=== PATIENT | male | born 1965 ===

== ENCOUNTER 2017-11-23 10:57 | Emergency (ER) | payer OTHER ==
[2017-11-23 11:09] VITALS: BMI 26.1
[2017-11-23 11:12] VITALS: BP 126/79; PULSE 80; RESP 20; TEMP 98.1; O2SAT 100
--- NOTE | 2017-11-23 11:45 | ED PDOC ---
HPI: General Adult Time Seen by Provider: 11/23/17 11:20 Chief Complaint (Nursing): Abnormal Skin Integrity History Per: Patient Additional Complaint(s): Pt. states for the for the past 2 weeks he's had a pruritic rash throughout his body. Denies fever, hx of previous allergic reactions, pain. Past Medical History Reviewed: Historical Data, Nursing Documentation, Vital Signs Vital Signs: Last Vital Signs Temp 98.1 F 11/23/17 11:09 Pulse 80 11/23/17 11:09 Resp 20 11/23/17 11:09 BP 126/79 11/23/17 11:09 Pulse Ox 100 11/23/17 11:09 - Family History Family History: States: No Known Family Hx - Home Medications Home Medications: Ambulatory Orders Medication Instructions Recorded Nystatin/Triamcinolone [Mycolog 1 appl TP TID #1 tube 11/23/17 Cream] - Allergies Allergies/Adverse Reactions: Allergies Allergy/AdvReac Type Severity Reaction Status Date / Time No Known Allergies Allergy Verified 11/23/17 11:42 Review of Systems ROS Statement: Except As Marked, All Systems Reviewed And Found Negative Skin: Positive for: Rash Physical Exam - Physical Exam Appears: Positive for: Well, Non-toxic, No Acute Distress Skin: Positive for: Normal Color, Warm, Rash (Multiple erythematous plaques with central clearing on L forearm, L side of abdomen, b/l thighs; no vesicles, pustules, or traget shaped lesions) - ECG O2 Sat by Pulse Oximetry: 100 Disposition - Clinical Impression Clinical Impression: Tinea corporis - Patient ED Disposition Is Patient to be Admitted: No - Disposition Referrals: Neville Nicolas MD [Family Provider] - Disposition: Routine/Home Disposition Time: 11:30 Condition: STABLE Additional Instructions: Follow up with Dr. Nicolas, PMD, for further evaluation. Return to ED immediately if symptoms persist or worsen. Prescriptions: Nystatin/Triamcinolone [Mycolog Cream] 1 appl TP TID #1 tube Instructions: Ringworm (DC) Print Language: AUSTRIAN
== END 2017-11-23 11:56 | disposition home or self-care (01) ==
LOC: H.ER 10:57
DX: B35.4 Tinea corporis (principal)